=== PATIENT | female | born 1980 | race American Indian/Alaskan Native ===

== ENCOUNTER 2021-02-27 16:32 | Outpatient (CLI) | payer OTHER ==
[2021-02-27] MEDS ORDERED: LACTATED RINGERS 500 ML IV ONE (16:57)
[2021-02-27 21:18] VITALS: BP 109/70
--- NOTE | 2021-02-27 21:33 | Ultrasound Report ---
ULTRASOUND OBSTETRIC LIMITED INDICATION / CLINICAL INFORMATION: PLACENTA WELLBEING. Clinical Gestational Age (GA) in weeks, days: 23 weeks 3 days TECHNIQUE: Transabdominal. COMPARISON: None available. FINDINGS: HEART RATE (beats per minute): 149 AMNIOTIC FLUID INDEX (cm) = not evaluated PRESENTATION: Transverse. ADDITIONAL FINDINGS: Grade 0 placenta. Posterior placenta. IMPRESSION: 1. No placental abruption. Signer Name: Jarod Nagy MD Signed: 02/27/2021 9:28 PM Workstation Name: [id number]
== END 2021-02-27 22:16 ==
LOC: TRG 16:32 → EEVIPCON 16:32 → APU 16:33 → TRG 22:16
PROVIDERS: ATTEND Obstetrics & Gynecology
DX: O09.893 Supervision of other high risk pregnancies, third trimester (principal); Z3A.23 23 weeks gestation of pregnancy
CPT/HCPCS: 59025; 76815

== ENCOUNTER 2021-04-15 07:28 | Outpatient (CLI) | payer MEDICAID ==
--- NOTE | 2021-04-15 08:45 | Ultrasound Report ---
Limited OB Ultrasound Biophysical profile HISTORY: c/o decreased BEATRIZ. TECHNIQUE: Grayscale and color imaging performed. COMPARISON: 02/27/2021 FINDINGS: Single intrauterine gestation with cephalic presentation and BEATRIZ of 15 cm. Heart rate is 14 1 bpm. On biophysical profile, the fetus received a score of 2 out of 2 for breathing, movement, posture/ton e, and BEATRIZ. Total score was 8 out of 8. IMPRESSION: 1. Single viable intrauterine gestation as above. 2. Normal BPP. Signer Name: Sourav Goode MD Signed: 04/15/2021 8:40 AM Workstation Name: [id number]
[2021-04-15 08:51] LABS: Bacteria,Urine 1+ /HPF (Negative); Bilirubin,Urine NEG (Negative); Blood,Urine NEG (Negative); Color,Urine Colorless (Yellow); Mucus,Urine FEW /HPF; Protein,Urine <15 mg/dL mg/dL (Negative); Urobilinogen,Urine < 2.0 mg/dL (<2.0)
[2021-04-15] MEDS ORDERED: LACTATED RINGERS 1,000 ML IV ONE (10:00)
[2021-04-15 10:38] VITALS: BP 130/80
== END 2021-04-15 09:15 | disposition home or self-care (01) ==
LOC: TRG 07:28 → APU 07:31 → TRG 09:15
PROVIDERS: ATTEND Obstetrics & Gynecology
DX: O36.8190 Decreased fetal movements, unspecified trimester, not applicable or unspecified (principal); Z3A.30 30 weeks gestation of pregnancy
CPT/HCPCS: 59025; 76815; 76819; 81001

== ENCOUNTER 2021-04-21 02:24 | Outpatient (CLI) | payer MEDICAID ==
[2021-04-21 03:17] VITALS: BP 130/83
[2021-04-21] MEDS ORDERED: ONDANSETRON 4 MG ODT TAB PO ONE (04:13)
== END 2021-04-21 04:35 | disposition home or self-care (01) ==
LOC: TRG 02:24 → APU 02:40 → TRG 04:35
PROVIDERS: ATTEND Obstetrics & Gynecology
DX: O09.893 Supervision of other high risk pregnancies, third trimester (principal); Z3A.31 31 weeks gestation of pregnancy
CPT/HCPCS: 59025; Q0162; J3490